=== PATIENT | female | born 1950 | race Hispanic/Latino ===

== ENCOUNTER → 2019-08-11 | Outpatient (CLI) | payer MEDICARE, OTHER | END | disposition home or self-care (01) | LOC: SHCH 07:47 | PROVIDERS: ATTEND Internal Medicine Cardiovascular Disease | DX: I10 Essential (primary) hypertension (principal) | CPT/HCPCS: 93975 ==

== ENCOUNTER → 2020-03-15 | Outpatient (CLI) | payer OTHER | END | disposition home or self-care (01) | LOC: RAH 09:14 | PROVIDERS: ATTEND Internal Medicine Cardiovascular Disease | DX: Z13.6 Encounter for screening for cardiovascular disorders (principal); K44.9 Diaphragmatic hernia without obstruction or gangrene | CPT/HCPCS: 75571 ==

== ENCOUNTER → 2020-03-15 | Outpatient (CLI) | payer OTHER | END | disposition home or self-care (01) | LOC: SHCH 09:07 | PROVIDERS: ATTEND Internal Medicine Cardiovascular Disease | DX: R01.1 Cardiac murmur, unspecified (principal) | CPT/HCPCS: 93306; 93356 ==

== ENCOUNTER → 2021-04-14 | Outpatient (CLI) | payer OTHER | END | disposition home or self-care (01) | LOC: SHCH 09:34 | PROVIDERS: ATTEND Internal Medicine Cardiovascular Disease | DX: I34.0 Nonrheumatic mitral (valve) insufficiency (principal); R55 Syncope and collapse; I10 Essential (primary) hypertension; R53.83 Other fatigue; E66.9 Obesity, unspecified; E78.5 Hyperlipidemia, unspecified | CPT/HCPCS: 93306; 93356 ==

== ENCOUNTER → 2021-06-14 | Outpatient (CLI) | payer OTHER | END | disposition home or self-care (01) | LOC: OIH 10:28 | PROVIDERS: ATTEND Internal Medicine Cardiovascular Disease | DX: Z13.6 Encounter for screening for cardiovascular disorders (principal) | CPT/HCPCS: 75571 ==

== ENCOUNTER → 2023-09-04 | Outpatient (CLI) | payer OTHER ==
[~2023-09-04] MED LIST: GADOTERATE MEGLUMINE 10 MMOL/20 ML VIAL IV ONE
== END | disposition home or self-care (01) ==
LOC: RAH 10:13
PROVIDERS: ATTEND Family Medicine
DX: M47.26 Other spondylosis with radiculopathy, lumbar region (principal); M54.31 Sciatica, right side
CPT/HCPCS: 72158; A9575

== ENCOUNTER 2025-03-04 11:06 | Observation (INO) | payer OTHER ==
[~2025-03-04] VITALS: Ht 157.5 cm; Wt 74.4 kg
--- NOTE | 2025-03-04 11:25 | ERN ---
General Chief Complaint: Hypertension Stated Complaint: HYPERTENSION Time Seen by MD: 11:08 Source: patient History of Present Illness Initial Comments Patient is a 74-year-old female coming in to be evaluated for elevated blood pressure. Per patient she was evaluated by PCP sent over for increased blood pressure. Along with this patient states she has been having muscle spasms in her abdomen. Allergies: Coded Allergies: codeine (Unverified Allergy, Unknown, 03/04/25) hydrocodone (Unverified Allergy, Unknown, 03/04/25) ketorolac (Unverified Allergy, Unknown, 03/04/25) Past Medical History Past Medical History: High Cholesterol, Hypertension, Hypothyroid Past Surgical History: Other Surgical History Other: SPINAL ROS Dictation CONSTITUTIONAL: No chills, no fever, no weakness, no diaphoresis, no malaise. HEAD/FACE: No signs of trauma. EENT: No eye pain, no blurred vision, no tearing, no double vision, no ear pain, no ear discharge, no nose pain, no nasal congestion, no throat pain, no throat swelling, no mouth pain. RESPIRATORY: No cough, no orthopnea, no SOB, no stridor, no wheezing. CARDIOVASCULAR: No chest pain, no edema, no palpitations, no syncope. GASTROINTESTINAL/ABDOMINAL: No abdominal pain, no constipation, no diarrhea, no nausea, no vomiting. GENITOURINARY: No abnormal discharge, no dysuria, no frequent urination, no hematuria. No complaints of pain in the genitals. MUSCULOSKELETAL: No back pain, no gout, no joint pain, no joint swelling, no muscle pain, no muscle stiffness, no neck pain. INTEGUMENTARY: No change in color, no change in hair/nails, no dryness, no lesion, no lumps, no rash. NEUROLOGICAL/PSYCH: No anxiety, not depressed, no emotional problem, no headache, no numbness, no pre-existing deficit, no history of seizures, no tremors, no weakness. HEMATOLOGIC/LYMPHATIC: Not anemic, no history of blood clots, no apparent b leeding, no bruising, glands not swollen. All Systems Negative, Except as Noted. Physical Exam Physical Exam Dictation VITAL SIGNS: Reviewed. GENERAL APPEARANCE: Alert, oriented x3, no acute distress, obese. HEAD AND FACE: Non-traumatic. EYES: PERRL, pink conjunctivas, eyelid no trauma, anterior chamber clear. EARS: Pinnas intact and no signs of trauma or erythema. Ear canals clear and no discharge. TMs no erythema. NOSE: No discharge, no bleeding. OROPHARYNX: Mouth normal, teeth no caries, tongue pink. Pharynx clear, no erythema. Tonsils no exudates, no abscesses noted. Mucous membrane moist. NECK: Supple, non-tender, no thyromegaly, no masses, no JVD, no bruits. BREAST: Deferred. CHEST: No tenderness, no crepitus, no paradoxical movement, no retractions. LUNGS: Clear, well-ventilated, symmetric, no rales, no wheezing, no rhonchi, no stridor, good breath sounds bilaterally. HEART: Regular rate, regular rhythm, no murmur, no gallops. VASCULAR: No peripheral edema. ABDOMEN: Soft, positive bowel sounds, nondistended, no guarding, nontender, no rebound, no masses no hepatomegaly, no splenomegaly, no Batista's sign, no hernias. RECTAL: Deferred. GENITAL: Deferred. NEUROLOGICAL: Normal speech, gross motor function intact, gross sensory function intact. MUSCULOSKELETAL: Neck nontender, full range of motion, back nontender, full ra nge of motion. EXTREMITIES: Nontender, full range of motion. SKIN: Color pink, dry, no turgor, no rash, no lacerations, no abrasions, no contusions. LYMPHATICS: Deferred. Results Laboratory and Microbiology Lab and Micro Result Laboratory Tests Test 03/04/25 11:23 03/04/25 11:30 White Blood Count 7.5 K/uL (4.8-10.8) Red Blood Count 4.93 MIL/uL (4.00-5.50) Hemoglobin 15.0 g/dL (12.0-16.0) Hematocrit 44.9 % (36-48) Mean Corpuscular Volume 91.1 fL (79-99) Mean Corpuscular Hemoglobin 30.4 pg (27.0-33.0) Mean Corpuscular Hemoglobin Concent 33.4 g/dL (32.0-36.0) Red Cell Distribution Width 13.0 % (11.0-15.5) Platelet Count 235 K/uL (130-400) Mean Platelet Volume 10.9 fL (7.5-10.5) H Immature Granulocyte % (Auto) 0.3 % (0-1) Neutrophils (%) (Auto) 49.8 % (40.0-77.0) Lymphocytes (%) (Auto) 40.9 % (21.0-51.0) Monocytes (%) (Auto) 7.3 % (3.0-13.0) Eosinophils (%) (Auto) 1.2 % (0.0-8.0) Basophils (%) (Auto) 0.5 % (0.0-5.0) Neutrophils # (Auto) 3.7 K/uL (1.8-7.7) Lymphocytes # (Auto) 3.1 K/uL (1.0-4.8) Monocytes # (Auto) 0.6 K/uL (0.1-1.0) Eosinophils # (Auto) 0.09 K/uL (0.00-0.70) Basophils # (Auto) 0.04 K/uL (0.00-0.20) Absolute Immature Granulocyte (auto 0.02 K/uL (0-1) Nucleated Red Blood Cells 0.0 % (0.0-0.19) Sodium Level 140 mmol/L (136-145) Potassium Level 4.1 mmol/L (3.5-5.1) Chloride Level 102 mmol/L (101-111) Carbon Dioxide Level 30 mmol/L (21-32) Blood Urea Nitrogen 19 mg/dL (7-18) H Creatinine 0.8 mg/dL (0.5-1.0) Glomerular Filtration Rate Calc 78 mL/min (>90) Random Glucose 123 mg/dL (70-105) H Total Calcium 9.7 mg/dL (8.5-10.1) Magnesium Level 1.90 mg/dL (1.80-2.40) Total Bilirubin 0.5 mg/dL (0.2-1.0) Aspartate Amino Transf (AST/SGOT) 23 U/L (10-37) Alanine Aminotransferase (ALT/SGPT) 36 U/L (12-78) Alkaline Phosphatase 114 U/L (50-136) Troponin I High Sensitivity 6 ng/L (4-50) Total Protein 8.2 g/dL (6.0-8.3) Albumin 4.3 g/dL (3.5-5.0) Lipase 22 U/L (16-77) Urine Color COLORLESS (YELLOW) Urine Appearance CLEAR (CLEAR) Urine pH 6.0 (5.0-8.0) Urine Specific [place] 1.008 (1.001-1.031) Urine Protein NEGATIVE mg/dL (NEGATIVE) Urine Glucose (UA) NEGATIVE mg/dL (NEGATIVE) Urine Ketones NEGATIVE mg/dL (NEGATIVE) Urine Occult Blood NEGATIVE (NEGATIVE) Urine Nitrate NEGATIVE (NEGATIVE) Urine Bilirubin NEGATIVE mg/dL (NEGATIVE) Urine Urobilinogen 0.2 mg/dL (0.2-1.0) Urine Leukocyte Esterase NEGATIVE Zana/uL Labs Reviewed?: Yes EKG/XRAY/US/CT/MRI EKG Comment 03/04/2025 time 11:17 a.m. Ventricular rate [address] wave elevation or depression X-RAY Comment [address] [place] [address] [id number] IMAGING REPORT Signed PATIENT: MARGARITA DENNY MR#: [id number] : 1950 SEX: F AGE: 74 LOCATION: [facility] ORDER [id number] STATUS: [facility] REPORT#: [id number] SERVICE 1116 REASON: ORDERING PHYSICIAN: DEMARIO LAN MD PROCEDURE: CXR1VW - CHEST 1VW CHEST 1VW HISTORY: Chest pain COMPARISON: 10/05/2013 FINDINGS: A frontal projection of the chest was obtained. No acute pulmonary infiltrates is seen. The heart is borderline enlarged. Prominent interstitial markings are seen. No evidence of aortic calcification is seen. IMPRESSION: 1. No acute pulmonary infiltrate is seen. DICTATED BY: RONALDO FALLON MD DATE: 03/04/25 1208 ELECTRONICALLY SIGNED BY: RONALDO FALLON MD DATE: 03/04/25 1211 [facility] MDM: DIFFERENTIAL DIAGNOSIS: HYPOTENSION, HYPERTENSION, BRADYCARDIA, RATIONALE: TESTS CONSIDERED AND ORDERED SECONDARY TO SHARED DECISION MAKING INCLUDE: LABS, ECG AND RADIOLOGY PREVIOUS OUTSIDE RECORDS REVIEWED: OLD ER VISITS. RISK OF COMPLICATION AND/OR MORBIDITY OR MORTALITY OF PATIENT MANAGEMENT: NONE MEDICATIONS-PER MEDICATION RECONCILIATION NEED FOR HOSPITALIZATION: PATIENT DOES MEET CRITERIA FOR HOSPITALIZATION. NEED FOR EMERGENCY MAJOR/MINOR SURGERY: NO THERE ARE NO SOCIAL CONCERNS WITH THIS PATIENT. PRESCRIPTION DRUG MANAGEMENT PRESCRIPTIONS WILL INCLUDE SYMPTOMATIC CARE PATIENT'S PRIOR EXTERNAL MEDICAL RECORDS FROM OTHER ER VISITS WERE REVIEWED BY ME INDICATED. PRIOR TESTING AND RESULTS FROM PREVIOUS VISITS WERE REVIEWED. PRIOR TESTS WERE TAKEN INTO ACCOUNT WITH MEDICAL DECISION MAKING AND RESOURCE UTILIZATION, INDEPENDENT HISTORIAN/HISTORIANS WERE USED TO OBTAIN COMPLETE MEDICAL HISTORY. I INDEPENDENTLY INTERPRETED THE TEST THAT WERE PERFORMED, RESULTS WERE REVIEWED BY ME AND CONSIDERED FINDINGS ON RADIOLOGY IF ORDERED. MEDICAL MANAGEMENT AND EXAMINATION INTERPRETATION DISCUSSIONS WERE HAD BY ME WITH OTHER QUALIFIED HEALTHCARE PROFESSIONALS INDICATED FOR THE PATIENT'S CARE. PATIENT IS A 74-YEAR-OLD FEMALE COMING IN TO BE EVALUATED FOR ABNORMAL BLOOD PRESSURE. SHE STATES THAT INITIALLY SHE WAS HYPOTENSIVE WITH BRADYCARDIA THEN SHE BECAME HYPERTENSIVE. THROUGHOUT ER VISIT PATIENT HAS BEEN STABLE BUT IS A FACT THAT HER BLOOD PRESSURE HAS BEEN VERY REGULAR AND UNCONTROLLED PATIENT WILL BE ADMITTED BENCHMARK ONGOING EVALUATION AND MANAGEMENT OF POSSIBLE MEDICATION SIDE EFFECT. ED Course Orders Procedure Category Date Status Time 12 Lead Ekg Tracing- EKG 03/04/25 Complete Technical 11:10 Cbc With Differential LAB 03/04/25 Complete 11:16 Chest 1vw RAD 03/04/25 Resulted 11:16 Lactated Ringers PHA 03/04/25 Complete 1000ml (Lactated 11:30 Magnesium LAB 03/04/25 Complete 11:16 Troponin I High LAB 03/04/25 Complete Sensitivity 11:16 Urinalysis Profile LAB 03/04/25 Complete 11:16 Comprehensive LAB 03/04/25 Complete Metabolic Panel 11:16 Lipase LAB 03/04/25 Complete 11:16 Current Medications Medications (Trade) Dose Ordered Sig/Elzbieta Route PRN Reason Start Time Stop Time Status Last Admin Dose Admin Lactated Ringer's 1,000 ml @ 0 mls/hr ONCE ONCE IV 03/04/25 11:30 03/04/25 11:31 DC 03/04/25 13:56 Vital Signs Date Time Temp Pulse Resp B/P (MAP) Pulse Ox O2 Delivery O2 Flow Rate FiO2 03/04/25 13:47 98.8 64 16 173/77 98 Room Air* 0 21 03/04/25 11:07 97.5 89 18 201/120 97 Room Air 0 DX & DISP Disposition: Inpatient Decision to Admit Time: 14:55 Departure Impression: Primary Impression: Hypertension Additional Impressions: Hypotension, Bradycardia Condition: Stable Referrals: CATHERINE CRESPO MD (PCP) DEMARIO LAN MD Mar 04, 2025 11:25
[2025-03-04 11:32] LABS: BASOPHILS # (AUTO) 0.04 K/uL (0.00-0.20); BASOPHILS % (AUTO) 0.5 % (0.0-5.0); EOSINOPHILS # (AUTO) 0.09 K/uL (0.00-0.70); EOSINOPHILS % (AUTO) 1.2 % (0.0-8.0); HEMATOCRIT 44.9 % (36-48); IMMATURE GRANULOCYTE ABSOLUTE 0.02 K/uL (0-1); LYMPHOCYTES # (AUTO) 3.1 K/uL (1.0-4.8); LYMPHOCYTES % (AUTO) 40.9 % (21.0-51.0); MEAN CORPUSCULAR HEMOGLOBIN 30.4 pg (27.0-33.0); MEAN CORPUSCULAR HGB CONC 33.4 g/dL (32.0-36.0); MEAN CORPUSCULAR VOLUME 91.1 fL (79-99); MONOCYTES # (AUTO) 0.6 K/uL (0.1-1.0); MONOCYTES % (AUTO) 7.3 % (3.0-13.0); NEUTROPHILS # (AUTO) 3.7 K/uL (1.8-7.7); NEUTROPHILS % (AUTO) 49.8 % (40.0-77.0); PLATELET COUNT (AUTO) 235 K/uL (130-400); RED BLOOD CELL COUNT(AUTO) 4.93 MIL/uL (4.00-5.50); WHITE BLOOD COUNT (AUTO) 7.5 K/uL (4.8-10.8)
[2025-03-04 11:36] LABS: APPEARANCE,URINE CLEAR (CLEAR); BILIRUBIN,URINE NEGATIVE (NEGATIVE); COLOR,URINE COLORLESS (YELLOW); GLUCOSE, URINE (UA) NEGATIVE (NEGATIVE); KETONES,URINE NEGATIVE (NEGATIVE); LEUKOCYTE ESTERASE ,URINE NEGATIVE Leu/uL (NEGATIVE); NITRATE,URINE NEGATIVE (NEGATIVE); OCCULT BLOOD,URINE NEGATIVE (NEGATIVE); PROTEIN,URINE NEGATIVE (NEGATIVE); UROBILINOGEN,URINE 0.2 mg/dL (0.2-1.0)
[2025-03-04 11:37] LABS: ADD UA MICROSCOPIC NO
[2025-03-04 11:39] LABS: CREATININE 0.8 mg/dL (0.5-1.0); POTASSIUM 4.1 mmol/L (3.5-5.1)
[2025-03-04 11:43] LABS: ALBUMIN 4.3 g/dL (3.5-5.0); BILIRUBIN,TOTAL 0.5 mg/dL (0.2-1.0); MAGNESIUM 1.9 mg/dL (1.80-2.40); TOTAL PROTEIN, SERUM 8.2 g/dL (6.0-8.3)
--- NOTE | 2025-03-04 12:11 | HMCIMG ---
CHEST 1VW HISTORY: Chest pain COMPARISON: 10/05/2013 FINDINGS: A frontal projection of the chest was obtained. No acute pulmonary infiltrates is seen. The heart is borderline enlarged. Prominent interstitial markings are seen. No evidence of aortic calcification is seen. IMPRESSION: 1. No acute pulmonary infiltrate is seen.
--- NOTE | 2025-03-04 12:34 | EKG ---
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
[2025-03-04] MEDS: LACTATED RINGERS 1000ML 1,000 ML IV ONE (13:56)
[2025-03-04] MEDS ORDERED: doCUSate SODIUM 100 MG CAP PO PRN (15:00)
[2025-03-04] MEDS ORDERED: ondanSETRON 4MG INJ IV PRN (15:00)
[2025-03-04] MEDS ORDERED: guaiFENesin SUGAR-FREE 100 MG/5 ML UDCUP PO PRN (15:00)
[2025-03-04] MEDS ORDERED: polyETHYLene GLYCol 3350 17 GM POWD.PACK PO PRN (15:00)
[2025-03-04] MEDS ORDERED: acetaMINOPHEN 325 MG TAB PO PRN ×2 (15:00)
[2025-03-04] MEDS ORDERED: hydrALAZine 25MG TABLET PO PRN (15:00)
[2025-03-04] MEDS ORDERED: hydrALAZine 20MG/ML VIAL IV PRN (15:00)
--- NOTE | 2025-03-04 16:21 | NUR ---
DCP: HOME Pt currently lives with deanne Rueda [phone]. Pt does not have any insecurities with food, prison, and/or utilities. Pt does not have DME, home health, or provider services. Pt is able to complete ADLs independently. PCP is Dr. Llamas and uses [facility] for any RX needs. At [place] pt will go home and family can assist with transportation. Addendum: 03/04/25 at 1624 by MAURA COOPER SS Amended: Links added.
[2025-03-04] MEDS: INSULIN LISpro 100 UNIT/ML 3ML SQ SCH (16:30)
[2025-03-04] MEDS: LISINOPRIL 10 MG TABLET PO SCH (16:56)
--- NOTE | 2025-03-04 18:35 | HP ---
[facility] HISTORY & PHYSICAL Date Patient Seen: Mar 04, 2025 Time of Visit: 18:25 Supervising Physician: DR. FRANCINE BURNETT Primary Care Physician: DR. JUSTEN PATTERSON Outpatient Specialists: [ ] Inpatient Consults: [ ] PROBLEM LIST: 1. Hypertensive urgency 2. GERD 3. ABDOMINAL SPASM HPI: Patient is a 74-year-old female with past medical history significant for hypertension, hyperlipidemia, GERD, and a surgical history of EGD, thyroidectomy, referred to the emergency department per PCP for evaluation of elevated blood pressure associated with abdominal spasm. Patient reports that shows at the doctor's office today, was found to have a blood pressure of 201/110 associated abdominal spasm. Primary care physician decided to transfer the patient to the emergency department for further evaluation and treatment. Patient denies fever, chills, nausea, vomiting, diarrhea, chest pain, cough, dizziness, or any other symptoms. Patient will be admitted to medical telemetry floor for further evaluation and treatment. PAST MEDICAL HX: see above PAST SURGICAL HX: noncontributory SOCIAL HISTORY: No tobacco, ETOH, or illicit drug use Coded Allergies: codeine (Unverified Allergy, Unknown, 03/04/25) hydrocodone (Unverified Allergy, Unknown, 03/04/25) ketorolac (Unverified Allergy, Unknown, 03/04/25) REVIEW OF SYSTEMS: 12 point ROS reviewed with patient. Pertinent positives mentioned above. Otherwise negative. PHYSICAL EXAM: GENERAL: alert, weak, awake oriented x 3 HEENT: EOMI, Sclera non icteric, moist mucosa NECK: Supple, no JVD, trachea midline LUNGS: Clear breath sounds bilaterally. No wheezes HEART: Regular rate and rhythm. Normal S1 and S2, without murmurs ABD: Abdomen soft, nontender. Bowel sounds present EXT: No clubbing cyanosis or edema NEURO: Alert and oriented to person, follows commands Vital Signs (last 8hr) Date Time Temp Pulse Resp B/P (MAP) Pulse Ox O2 Delivery O2 Flow Rate FiO2 03/04/25 16:52 98.8 56 16 170/83 97 Room Air* 0 21 03/04/25 13:47 98.8 64 16 173/77 98 Room Air* 0 21 03/04/25 11:07 97.5 89 18 201/120 97 Room Air 0 LABS: Hematology Labs: Test 03/04/25 11:23 Range/Units White Blood Count 7.5 4.8-10.8 K/uL Red Blood Count 4.93 4.00-5.50 MIL/uL Hemoglobin 15.0 12.0-16.0 g/dL Hematocrit 44.9 36-48 % Mean Corpuscular Volume 91.1 79-99 fL Mean Corpuscular Hemoglobin 30.4 27.0-33.0 pg Mean Corpuscular Hemoglobin Concent 33.4 32.0-36.0 g/dL Red Cell Distribution Width 13.0 11.0-15.5 % Platelet Count 235 130-400 K/uL Mean Platelet Volume 10.9 H 7.5-10.5 fL Immature Granulocyte % (Auto) 0.3 0-1 % Neutrophils (%) (Auto) 49.8 40.0-77.0 % Lymphocytes (%) (Auto) 40.9 21.0-51.0 % Monocytes (%) (Auto) 7.3 3.0-13.0 % Eosinophils (%) (Auto) 1.2 0.0-8.0 % Basophils (%) (Auto) 0.5 0.0-5.0 % Neutrophils # (Auto) 3.7 1.8-7.7 K/uL Lymphocytes # (Auto) 3.1 1.0-4.8 K/uL Monocytes # (Auto) 0.6 0.1-1.0 K/uL Eosinophils # (Auto) 0.09 0.00-0.70 K/uL Basophils # (Auto) 0.04 0.00-0.20 K/uL Absolute Immature Granulocyte (auto 0.02 0-1 K/uL Nucleated Red Blood Cells 0.0 0.0-0.19 % Chemistry Labs: Test 03/04/25 16:56 03/04/25 11:23 Range/Units Whole Blood Glucose 104 70-110 MG/DL Sodium Level 140 136-145 mmol/L Potassium Level 4.1 3.5-5.1 mmol/L Chloride Level 102 101-111 mmol/L Carbon Dioxide Level 30 21-32 mmol/L Blood Urea Nitrogen 19 H 7-18 mg/dL Creatinine 0.8 0.5-1.0 mg/dL Glomerular Filtration Rate Calc 78 >90 mL/min Random Glucose 123 H 70-105 mg/dL Total Calcium 9.7 8.5-10.1 mg/dL Magnesium Level 1.90 1.80-2.40 mg/dL Total Bilirubin 0.5 0.2-1.0 mg/dL Aspartate Amino Transf (AST/SGOT) 23 10-37 U/L Alanine Aminotransferase (ALT/SGPT) 36 12-78 U/L Alkaline Phosphatase 114 50-136 U/L Troponin I High Sensitivity 6 4-50 ng/L Total Protein 8.2 6.0-8.3 g/dL Albumin 4.3 3.5-5.0 g/dL Lipase 22 16-77 U/L DIAGNOSTICS / RADIOLOGY RESULTS: [ ] PLAN NEURO: Minimize central acting medications as possible. Maintain fall precautions, adequate lighting during the day PULMONARY: Supplemental 02 as needed. Maintain aspiration precautions at all times CARDIOVASCULAR: Follow hemodynamics. Vital signs per facility protocol 2D echo cardiology read Hydralazine p.r.n. for systolic BP over 160 or diastolic above 90 GI & NUTRITION: Continue with nutritional support. Continue stool softeners and laxatives as needed. Famotidine [address] b[address]d. Obtain CT abdomen and pelvis with IV contrast KIDNEYS & ELECTROLYTES: Strict monitoring of intake, output and overall fluid balance. Avoid nephrotoxic medications to the extent possible. Medications to be dosed according to renal function. Monitor electrolytes and replace as needed ENDOCRINE: Maintain blood glucose between 100-180 at all times. Hypoglycemia protocol in place Obtain TSH INFECTIOUS DISEASE: Trend temperature, WBC and procalcitonin level Follow cultures, deescalate antibiotics as soon as possible. Panculture if new onset fever ONCOLOGY/HEMATOLOGY/COAGULATION: Monitor for s/s of bleeding Monitor hemoglobin, coagulation studies as needed SKIN: Pressure ulcer prevention per facility protocol Specialty mattress ORTHO/REHAB: Continue PT/OT Prophylaxis: Continue GI and DVT prophylaxis Code Status: Full Resuscitation Disposition: TBD Other: Total patient care time exceeds 35 minutes excluding all procedures. Case discussed with Dr. Francine BURNETT , AND THE ABOVE PLAN WAS FORMULATED. VIRA XIONG Mar 04, 2025 18:35
[2025-03-04] MEDS ORDERED: IOHEXOL 350 MG/ML 100ML INFUS..BTL IV ONE (18:43)
--- NOTE | 2025-03-04 20:22 | HMCIMG ---
CT ABDOMEN/PELVIS W/CONTRAST HISTORY: Abdominal pain COMPARISON: None TECHNIQUE: Multiple sequential axial images of the abdomen and pelvis were obtained from the dome of the diaphragm through symphysis pubis. Patient was given 100 cc of Omnipaque through intravenous route. Oral contrast was given. FINDINGS: No pleural effusion is seen bilaterally. There are mild bilateral interstitial fibrosis. Degenerative changes of the thoracolumbar spine are present. The heart is not enlarged. Liver measures 15 cm. Subcentimeter left hepatic cyst is seen. There is simple left renal cyst measuring 2 cm. No bowel obstruction is seen.The liver, spleen, adrenal glands and pancreas are unremarkable. There is no evidence of hydronephrosis bilaterally. No evidence of renal stone is seen. Fecal material is seen in the colon. There are normal size retroperitoneal and mesenteric lymph nodes. No ascites is seen. Atherosclerotic changes are present. Uterus is not seen. There is mild diverticulosis. Pelvic sidewalls are symmetric bilaterally. Bladder is well distended without wall thickening. IMPRESSION: 1. No acute findings. CT was performed with one or more following dose reduction techniques: automated exposure control, adjustment of the mA and kv according to patient's size, or use of a iterative reconstruction technique.
[2025-03-04] MEDS: FAMOTIDINE 20MG TAB PO SCH (21:06)
--- NOTE | 2025-03-04 22:12 | NUR ---
PATIENT REFUSED TO GET AT ADMITTED, AMA FORM SECURED AND SIGNED KOMAL GRAZYNA AWARE VS STABLE
[2025-03-04 22:14] VITALS: BP 130/55; PULSE 70; RESP 16; TEMP 98.8; O2SAT 97
== END 2025-03-04 22:05 | disposition left against medical advice (07) ==
LOC: EDH 11:06 → EDHIP 11:07
PROVIDERS: ADMIT Internal Medicine; ATTEND Internal Medicine
DX: I16.0 Hypertensive urgency (principal); K21.9 Gastro-esophageal reflux disease without esophagitis; I10 Essential (primary) hypertension; E89.0 Postprocedural hypothyroidism; E78.00 Pure hypercholesterolemia, unspecified; I95.9 Hypotension, unspecified; R00.1 Bradycardia, unspecified; M62.838 Other muscle spasm; Z79.899 Other long term (current) drug therapy; Z98.890 Other specified postprocedural states
CPT/HCPCS: 96360; 96361; 99285; 84443; 83735; 84484; 80053; 83690; 85025; 82948; 81003; 36415; 71045; 74177; 93005; G0378 ×7; Q9967

== ENCOUNTER → 2025-06-30 | Outpatient (CLI) | payer OTHER ==
--- NOTE | 2025-06-30 21:20 | HMCIMG ---
EXAM: CT Chest Without IV contrast. CLINICAL HISTORY: Essential (primary) hypertension, Other disorders of the lung TECHNIQUE: Axial computed tomography images of the chest without intravenous contrast. COMPARISON: None provided. FINDINGS: LUNGS: No pulmonary mass. The lungs appear essentially clear. Linear atelectasis in the medial segment of the right middle lobe and lingular segments of the left upper lobe. PLEURAL SPACES: No evidence of pneumothorax. No pleural effusion. HEART: No cardiomegaly. No significant pericardial effusion. Atherosclerotic wall calcifications in the descending thoracic aorta. LYMPH NODES: No lymphadenopathy is evident. UPPER ABDOMEN: The upper abdominal solid organs are unremarkable. A small hiatus hernia. BONES: Mild to moderate multilevel degenerative changes in the spine. No acute osseous abnormality. IMPRESSION: No acute cardiopulmonary process. /Leslie
== END | disposition home or self-care (01) ==
LOC: RAH 13:35
PROVIDERS: ATTEND Internal Medicine Cardiovascular Disease
DX: J98.11 Atelectasis (principal); J98.4 Other disorders of lung; I70.0 Atherosclerosis of aorta; K44.9 Diaphragmatic hernia without obstruction or gangrene; M47.814 Spondylosis without myelopathy or radiculopathy, thoracic region; I10 Essential (primary) hypertension
CPT/HCPCS: 71250

== ENCOUNTER → 2025-08-26 | Outpatient (CLI) | payer OTHER ==
[~2025-08-26] MED LIST changes: -GADOTERATE MEGLUMINE 10 MMOL/20 ML VIAL IV ONE; +IOHEXOL-350 75 ML VIAL IV ONE
--- NOTE | 2025-08-26 22:44 | HMCIMG ---
Exam: CT Angiography of the Abdomen with and without Intravenous Contrast Clinical Indication: Atherosclerosis of the renal artery. Technique: CT angiography of the abdomen was performed before and after intravenous contrast administration. Axial images were acquired with arterial and delayed phase imaging. Multiplanar reformatted and maximum intensity projection images were reviewed. A total of 75 mL of intravenous contrast was administered. Radiation dose metrics include a CTDIvol of 76.1 mGy and a total DLP of 879.8 mGycm. Comparison: No prior studies are available for comparison. Findings: Lung Bases: Bibasilar dependent atelectasis is present. Liver: There is a non-enhancing hypodense lesion in the left hepatic lobe measuring approximately 2.0 1.6 cm, compatible with a simple cyst. Another similar non-enhancing nodular lesion is present in segment measuring approximately 1.4 cm, also consistent with a simple hepatic cyst. No enhancing hepatic lesion is identified. Gallbladder and Biliary Tree: The gallbladder is unremarkable. No biliary ductal dilatation is seen. Pancreas: Unremarkable in size, contour, and attenuation, without focal lesion or ductal dilatation. Spleen: Unremarkable. Adrenal Glands: A small hypodense nodule is present in the left adrenal gland measuring approximately 5 mm with an attenuation value of approximately ?10 HU on non-contrast images, compatible with a lipid-rich adenoma. The right adrenal gland demonstrates a 5 mm sized nodule (average attenuation -11), compatible with a lipid rich adenoma. Kidneys: Multiple bilateral renal cysts are present. The largest is an exophytic hypodense cyst arising from the inferior pole of the left kidney measuring approximately 2.2 cm, without post-contrast enhancement. The kidneys demonstrate symmetric enhancement and excretion on delayed phase images, without hydronephrosis or hydroureter. Abdominal Aorta and Major Branches: The abdominal aorta demonstrates minimal atheromatous calcification without aneurysm or dissection. The celiac trunk, superior mesenteric artery, and inferior mesenteric artery origins are patent without significant stenosis. A small calcified plaque is present at the ostium of the superior mesenteric artery without hemodynamically significant stenosis. Renal Arteries: Single renal arteries are present bilaterally. There is a heavily calcified atheromatous plaque at the ostium of the left renal artery extending for approximately 8 mm, resulting in approximately 50% luminal stenosis with post-stenotic dilatation. The right renal artery ostium is unremarkable, without stenosis. Gastrointestinal Tract: A small sliding hiatal hernia is present. The appendix is unremarkable. No bowel obstruction is identified. Peritoneal Cavity and Abdominal Wall: A tiny umbilical hernia containing fat is present, with a defect measuring approximately 0.5 cm. No ascites or free air is seen. Lymph Nodes: No enlarged abdominal lymph nodes are identified. A right pericaval nodular structure measuring approximately 1.0 cm is noted, indeterminate in nature. Musculoskeletal Structures: Degenerative changes are present in the visualized spine. 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 The right renal artery is patent without stenosis. * Simple hepatic cysts in the left hepatic lobe and segment , without suspicious enhancement. * Bilateral Bosniak class I renal cysts, largest measuring 2.2 cm at the inferior pole of the left kidney, without enhancement or obstruction. * Bilateral adrenal adenomas. /[place]
== END ==
LOC: RAH 07:36
PROVIDERS: ATTEND Internal Medicine Cardiovascular Disease
DX: I70.1 Atherosclerosis of renal artery (principal); J98.11 Atelectasis; K76.89 Other specified diseases of liver; E27.8 Other specified disorders of adrenal gland; N28.1 Cyst of kidney, acquired; I70.0 Atherosclerosis of aorta
CPT/HCPCS: 74175; Q9967